=== PATIENT | female | born 2000 | race Two or more races ===

== ENCOUNTER 2025-06-01 19:30 | Emergency (ER) | payer MEDICAID, OTHER ==
[~2025-06-01] VITALS: Ht 162.6 cm; Wt 63.9 kg
--- NOTE | 2025-06-01 20:24 | DVH ---
CLINICAL INDICATION: r/o fx s/p dog bite TECHNIQUE: 3 radiographic views of the right hand were obtained. Comparison: None FINDINGS/IMPRESSION: Mildly displaced comminuted fracture distal aspect middle phalanx right digit.
--- NOTE | 2025-06-01 21:27 | ED.PDOC ---
HPI Comments 25-year-old female who presents to the ED with complaint of animal bite. Patient states that she was bit by a dog earlier this afternoon on right hand. Patient now in the ED has a noted puncture wound on the 4th and 5th digit with noted deformity on right hand 4th digit. Patient now in the ED otherwise has bleeding controlled. Patient otherwise states tetanus up-to-date. Patient otherwise denies any other symptoms. Patient otherwise has noted stable vitals in the ED. Chief Complaint: Animal Bite Time Seen by MD: 21:20 Reviewed Notes: Medications, Allergies Allergies: Coded Allergies: NO KNOWN ALLERGIES (Unverified , 06/01/25) Information Source: Patient Mode of Arrival: Ambulatory Complexity: Simple Laceration Length (cm): 0 Past Medical History PAST MEDICAL HISTORY: Denies Surgical History: Denies all surgeries JOB ESTIMATOR History: Denies all JOB ESTIMATOR Hx Family History Family History: Reviewed,noncontributory to illness, No family hx of Cancer, No family hx of DM, No family hx of Heart michael, No family hx of HTN, No family hx ofKidney michael, No family hx of Liver michael, No family hx of Lung michael, No family hx of Stroke Social History Smoker: Non-Smoker Alcohol: Denies ETOH Use Drugs: Denies Drug Use Lives In: Home Constitutional: denies: chills, diaphoresis, fatigue, fever, malaise, sweats, weakness, others EENTM: denies: blurred vision, double vision, ear bleeding, ear discharge, ear drainage, ear pain, ear ringing, eye pain, eye redness, hearing loss, mouth pain, mouth swelling, nasal discharge, nose bleeding, nose congestion, nose pa in, photophobia, tearing, throat pain, throat swelling, voice changes, others Respiratory: denies: cough, hemoptysis, orthopnea, SOB at rest, shortness of breath, SOB with excertion, stridor, wheezing, others Cardiovascular: denies: chest pain, dizzy spells, diaphoresis, Dyspnea on exertion, edema, irregular heart beat, left arm pain, lightheadedness, palpitations, PND, syncope, others Gastrointestinal: denies: abdomen distended, abdominal pain, blood streaked bowels, constipated, diarrhea, dysphagia, difficulty swallowing, hematemesis, melena, nausea, poor appetite, poor fluid intake, rectal bleeding, rectal pain, vomiting, others Genitourinary: denies: abnormal vagina bleeding, burning, dyspareunia, dysuria, flank pain, frequency, hematuria, incontinence, pain, , vagina discharge, urgency, others Neurological: denies: dizziness, fainting, headache, left sided numbness, left sided weakness, numbness, paresthesia, pre-existing deficit, right sided numbness, right sided weakness, seizure, speech problems, tingling, tremors, weakness, others Musculoskeletal: denies: back pain, gout, joint pain, joint swelling, muscle pain, muscle stiffness, neck pain, others Integumetry: reports: laceration (Right hand 4th and 5th digit); denies: bruises, change in color, change in hair/nails, dryness, lesions, lumps, rash, wounds, others Allergic/Immunocompromised: denies: Difficulty Healing, Frequent Infections, Hives, Itching, others Hematologic/Lymphatic: denies: anemia, blood clots, easy bleeding, easy bruising, swollen glands, others Endocrine: denies: excessive hunger, excessive sweating, excessive thirst, excessive urination, flushing, intolerance to cold, intolerance to heat, unexplained weight gain, unexplained weight loss, others Psychiatric: denies: anxiety, bipolar disorder, depression, hopeless, panic disorder, schizophrenia, sleepless, suicidal, others All Other Systems: Reviewed and Negative Physical Exam General Appearance: No Apparent Distress, Normal HEENT: Normal ENT Inspection, Pharynx Normal, TMs Normal Neck: Full Range of Motion, Non-Tender, Normal, Normal Inspection Respiratory: Chest Non-Tender, Lungs Clear, No Accessory Muscle Use, No Respiratory Distress, Normal Breath Sounds Cardiovascular: No Edema, No JVD, No Murmur, No Gallop, Normal Peripheral Pulses, Regular Rate/Rhythm Breast Exam: Deferred Gastrointestinal: No Organomegaly, Non Tender, No Pulsatile Mass, Normal Bowel Sounds, Soft Genitalia: Deferred Pelvic: Deferred Rectal: Deferred Extremities: No calf tenderness, Normal capillary refill, Normal inspection, Normal range of motion, Non-tender, No pedal edema Musculoskeletal : Apperance: Normal Neurologic: Alert, bean picker II-XII nml as Tested, No Motor Deficits, Normal Affect, Normal Mood, No Sensory Deficits Cerebellar Function: Normal Reflexes: Normal Skin: Other (Deformity noted to the right hand 4th digit distal phalanx, three puncture wounds noted) Lymphatic: No Adenopathy Was a procedure done? Was a procedure done?: No Differential diagnosis Generic Laceration: Hematoma, Fracture, Tendon Injury, Abrasion/Contusion, Laceration, Avulsion, Amputation X-Ray, Labs, Meds, VS Vital Signs Date Time Temp Pulse Resp B/P (MAP) Pulse Ox O2 Delivery O2 Flow Rate FiO2 06/01/25 19:32 97.7 71 19 95/60 96 97.7 [place] [id number] Ph: [phone] DIAGNOSTIC IMAGING Diagnostic Imaging Report : [id number] Signed PATIENT: WOLFGANG GONZALEZ ACCT: [id number] UNIT: [id number] : 2000 LOC: ER ROOM / BED: / AGE / SEX: 25 / F ADM STATUS: REG ER SERVICE 36 ORDERING PHYSICIAN: AMINATA ARRIAGA PROCEDURE(s): RHAN - R HAND 3 VIEW XRAY REASON: r/o fx s/p dog bite ORDER NUMBER(s): [id number], ACCESSION NUMBER(s): [id number] CLINICAL INDICATION: r/o fx s/p dog bite TECHNIQUE: 3 radiographic views of the right hand were obtained. Comparison: None FINDINGS/IMPRESSION: Mildly displaced comminuted fracture distal aspect middle phalanx right digit. ATED BY: MARLYN TELLEZ Jr., DO DICTATED DATE/TIME: 06/01/252020 SIGNED BY: MARLYN TELLEZ Jr., SIGNED DATE/TIME: 06/01/252020 CC: X-Ray, Labs, Meds, VS Comment Reduction of the right hand 4th digit distal tip was performed. Digital block was done with good anesthetic effect concealing 3 cc of lidocaine. Traction was pulled to the distal tip of the finger with improved alignment. Patient's finger was cleansed with normal saline and dressed with triple antibiotic ointment. Fingers placed in frog splint. Time of 1ST Reevaluation: 21:50 Reevaluation 1ST: Unchanged Patient Education/Counseling: Diagnosis, Treatment, Need For Follow Up (Follow up with PCP for orthopedic referral) Family Education/Counseling: No Family Present Departure 1 Departure Time of Disposition: 21:57 Impression: Primary Impression: Animal bite Additional Impression: Finger fracture Qualified Codes: S62.634A - Displaced fracture of distal phalanx of right ring finger, initial encounter for closed fracture Disposition: HOME / SELF CARE / HOMELESS Condition: Stable e-Prescriptions Ibuprofen Micronized (Ibuprofen) 600 Mg Tab 600 MG PO TID PRN, #40 TAB Prov: AMINATA ARRIAGA 06/01/25 Amoxicillin & Pot Clavulanate (AUGMENTIN TABLET) 875 Mg Tb 875 MG PO BID for 7 Days, #14 TAB Prov: AMINATA ARRIAGA 06/01/25 Discharged With: Self Critical Care Note Critical Care Time?: No Stability Stability form required: No Heart Score Heart Score: Heart Score Response (Comments) Value History N/A 0 EKG N/A 0 Age N/A 0 Risk Factors N/A 0 Troponin N/A 0 Total 0 I personally scribed for AMINATA ARRIAGA (CLEMENTINE) on 06/01/25 at 21:27. Electronically submitted by [employer]oy THORPE). AMINATA ARRIAGA Jun 01, 2025 21:27
[2025-06-01 22:00] VITALS: BP 100/64; PULSE 76; RESP 18; TEMP 98.1; O2SAT 99
[2025-06-01] MEDS ORDERED: IBUP1TAB5 PO (22:00)
[2025-06-01] MEDS ORDERED: AUG875T PO (22:00)
--- NOTE | 2025-06-01 22:09 | DVH ---
EXAM: XY R 4TH FINGER XRAY REASON FOR EXAM: post reduction TECHNIQUE: PA, lateral, and oblique views of the right 4th finger are submitted for review. COMPARISON: XY R HAND 3 VIEW XRAY on DOS: 06/01/25 FINDINGS: There is mildly comminuted acute fracture of the distal diaphysis of the 4th middle phalanx without intra-articular extension. There is approximately 1 mm dorsal displacement of the distal fra cture fragments with 2 mm foreshortening, slightly improved compared with the prior study. There is m oderate soft tissue swelling of the 4th finger. IMPRESSION: Mildly comminuted acute fracture of the distal diaphysis of the 4th middle phalanx with mild dorsal d isplacement and foreshortening, improved compared with the prior study.
== END 2025-06-01 22:20 | disposition home or self-care (01) ==
LOC: ER 19:30
DX: S62.634A Displaced fracture of distal phalanx of right ring finger, initial encounter for closed fracture (principal); W54.0XXA Bitten by dog, initial encounter; Y93.89 Activity, other specified; Y92.89 Other specified places as the place of occurrence of the external cause; Y99.8 Other external cause status
CPT/HCPCS: 26755; 29130; 73130; 73140